=== PATIENT | female | born 1995 | race American Indian/Alaskan Native ===

== ENCOUNTER 2018-06-02 13:54 | Emergency (ER) | payer SELFPAY ==
[2018-06-02 14:48] LABS: Basophils % (Auto) 0.6 % (0.0-1.8); Eosinophils # (Auto) 0.3 K/mm3 (0.0-0.4); Eosinophils % (Auto) 4.4 % (0.0-4.3); Hematocrit 40.2 % (30.3-42.9); Hemoglobin 13.2 gm/dl (10.1-14.3); Lymphocytes # (Auto) 1.8 K/mm3 (1.2-5.4); Lymphocytes % (Auto) 28.7 % (13.4-35.0); Mean Corpuscular HGB Conc 33 % (30-34); Mean Corpuscular Hemoglobin 27 pg (28-32); Mean Corpuscular Volume 84 fl (79-97); Monocytes # (Auto) 0.4 K/mm3 (0.0-0.8); Monocytes % (Auto) 5.8 % (0.0-7.3); Platelet Count 305 K/mm3 (140-440); Red Cell Distribution Width 13.9 % (13.2-15.2)
[2018-06-02 15:02] LABS: HCG Qualitative,Urine Positive (Negative)
[2018-06-02 15:06] LABS: Bacteria,Urine 1+ /HPF (Negative); Bilirubin,Urine NEG (Negative); Blood,Urine MOD (Negative); Color,Urine Yellow (Yellow); Mucus,Urine FEW /HPF; Protein,Urine <15 mg/dL mg/dL (Negative); Urobilinogen,Urine < 2.0 mg/dL (<2.0)
--- NOTE | 2018-06-02 15:09 | Emergency Department Report ---
Blank Doc - Documentation Documentation: 22-year-old female in positive test at approximately 5 weeks gestation presents with abdominal cramping and vaginal bleeding. Patient reports symptom onset last night. Reports light vaginal bleeding. No previous history of pregnancies. She denies lightheadedness or dizziness. Patient slightly tachycardic at 106. Patient has mild suprapubic tenderness on exam. We will obtain tests, hCG level, blood type, and ultrasound to assess for ectopic versus threatened AB versus spontaneous AB.
--- NOTE | 2018-06-02 15:44 | Emergency Department Report ---
ED HPI - General Chief complaint: Vaginal Bleeding Stated complaint: BLEEDING/5 WEEKS GEST Time Seen by Provider: 06/02/18 14:19 Source: patient Mode of arrival: Ambulatory Limitations: No Limitations - History of Present Illness Initial comments: recent pos test bleeding lightly with cramping since last night Complaint: vaginal bleeding -: Gradual, Last night Location: pelvis Radiation: suprapubic Severity: mild Severity scale (0 -10): 2 Quality: cramping Consistency: intermittent Improves with: none Worsens with: none Associated symptoms: vaginal bleeding Vaginal bleeding: light :: Yes Number of weeks : 5 Pre- care: none - Related Data Previous Rx's Medication Instructions Recorded Last Taken Type Nitrofurantoin Monohyd/M-Cryst 100 mg PO BID #14 capsule 06/02/18 Unknown Rx [Macrobid 100 mg Capsule] Allergies Allergy/AdvReac Type Severity Reaction Status Date / Time No Known Allergies Allergy Unverified 06/02/18 14:03 ED Review of Systems ROS: Stated complaint: BLEEDING/5 WEEKS GEST Other details as noted in HPI Comment: All other systems reviewed and negative Gastrointestinal: abdominal pain Genitourinary: other (vaginal bleeding) ED Past Medical Hx - Past Medical History Previous Medical History?: Yes - Surgical History Past Surgical History?: No - Social History Smoking Status: Never Smoker Substance Use Type: None - Medications Home Medications: Home Medications Medication Instructions Recorded Confirmed Last Taken Type Nitrofurantoin Monohyd/M-Cryst 100 mg PO BID #14 capsule 06/02/18 Unknown Rx [Macrobid 100 mg Capsule] ED Physical Exam - General Limitations: No Limitations General appearance: alert, in no apparent distress - Head Head exam: Present: atraumatic, normocephalic - Eye Eye exam: Present: normal appearance - ENT ENT exam: Present: mucous membranes moist - Neck Neck exam: Present: normal inspection - Respiratory Respiratory exam: Present: normal lung sounds bilaterally. Absent: respiratory distress - Cardiovascular Cardiovascular Exam: Present: regular rate, normal rhythm. Absent: systolic murmur, diastolic murmur, rubs, gallop - GI/Abdominal GI/Abdominal exam: Present: soft, tenderness (suprapubic, mild), normal bowel sounds. Absent: distended, guarding, rebound - Extremities Exam Extremities exam: Present: normal inspection - Back Exam Back exam: Present: normal inspection - Neurological Exam Neurological exam: Present: alert, oriented X3 - Psychiatric Psychiatric exam: Present: normal affect, normal mood - Skin Skin exam: Present: warm, dry, intact, normal color. Absent: rash ED Course Vital Signs 06/02/18 06/02/18 13:59 15:25 Temperature 98.4 F Pulse Rate 106 H Respiratory 18 18 Rate Blood Pressure 143/78 O2 Sat by Pulse 99 99 Oximetry ED Medical Decision Making - Lab Data Result diagrams: 06/02/18 14:35 Rh+; UA shows UTI - Radiology Data Radiology results: report reviewed, image reviewed L ovarian cyst single viable IUP subchorionic hemorrhage - Medical Decision Making in with vaginal bleeding and cramping x 1 day benign exam UA shows UTI US shows L cyst, IUP, subchorionic hemorrhage pelvic rest, f/u OB - Differential Diagnosis ectopic, threatened ab, spontaneous ab, UTI Critical care attestation.: If time is entered above; I have spent that time in minutes in the direct care of this critically ill patient, excluding procedure time. ED Disposition Clinical Impression: Threatened , Left ovarian cyst UTI (urinary tract infection) Qualifiers: Urinary tract infection type: site unspecified Hematuria presence: with hematuria Qualified Code(s): N39.0 - Urinary tract infection, site not specified ; R31.9 - Hematuria, unspecified Disposition: - TO HOME OR SELFCARE Is pt being admited?: No Condition: Stable Instructions: Threatened Miscarriage (ED), Urinary Tract Infection in Women (ED ), Ovarian Cyst (ED) Prescriptions: Nitrofurantoin Monohyd/M-Cryst [Macrobid 100 mg Capsule] 100 mg PO BID #14 capsule Referrals: DENNIS RAMEY MD [Staff Physician] - 2-3 Days Time of Disposition: 16:51
--- NOTE | 2018-06-02 16:42 | Ultrasound Report ---
FINAL REPORT EXAM: US OB < = 14 WEEKS FETUS HISTORY: abd pain TECHNIQUE: Ultrasound evaluation of the gravid uterus PRIORS: Transvaginal pelvic ultrasound 06/02/2018 FINDINGS: A gestational sac is present in the endometrial cavity containing a yolk sac and pole. viability is documented with evidence of cardiac activity. pole crown-rump length: 2.6 mm Gestational Sac Size: 16.7 mm heart rate: 108 and 111 beats per minute Average estimated gestational age by ultrasound 6 weeks 2 days Estimated delivery date: 01/24/2019 Slightly hyperechoic material adjacent to the decidual reaction is nonspecific. Considerations include subchorionic hemorrhage or submucosal fibroid. No evidence of solid ovarian mass. Nonspecific 4.2 cm simple appearing left ovarian cyst may be a corpus luteum. There is slight fluid adjacent to the left ovary. The adnexa are normal. There is slight nonspecific cul-de-sac free fluid. IMPRESSION: Single viable early intrauterine with the above parameters Nonspecific hyperechoic material adjacent to the decidual reaction may reflect a 1.7 x 2.4 cm submucosal fibroid or subchorionic hemorrhage Left ovarian cyst may be a corpus luteum
--- NOTE | 2018-06-02 16:45 | Ultrasound Report ---
FINAL REPORT EXAM: US OB TRANSVAGINAL HISTORY: abd pain TECHNIQUE: Ultrasound evaluation of the gravid uterus using endovaginal technique PRIORS: Transabdominal Ob ultrasound 06/02/2018 FINDINGS: A gestational sac is present in the endometrial cavity containing a yolk sac and pole. viability is documented with evidence of cardiac activity. pole crown-rump length: 2.6 mm Gestational Sac Size: 16.7 mm heart rate: 108 and 111 beats per minute Average estimated gestational age by ultrasound 6 weeks 2 days Estimated delivery date: 01/24/2019 Slightly hyperechoic material adjacent to the decidual reaction is nonspecific. Considerations include subchorionic hemorrhage or submucosal fibroid. No evidence of solid ovarian mass. Nonspecific 4.2 cm simple appearing left ovarian cyst may be a corpus luteum. There is slight fluid adjacent to the left ovary. The adnexa are normal. There is slight nonspecific cul-de-sac free fluid. IMPRESSION: Single viable early intrauterine with the above parameters Nonspecific hyperechoic material adjacent to the decidual reaction may reflect a 1.7 x 2.4 cm submucosal fibroid or subchorionic hemorrhage Left ovarian cyst may be a corpus luteum
[2018-06-02 17:20] VITALS: BP 138/88
== END 2018-06-02 17:17 | disposition home or self-care (01) ==
LOC: ED 13:54
DX: O20.0 Threatened abortion (principal); O23.41 Unspecified infection of urinary tract in pregnancy, first trimester; O34.81 Maternal care for other abnormalities of pelvic organs, first trimester; Z3A.01 Less than 8 weeks gestation of pregnancy
CPT/HCPCS: 36415; 76801; 76817; 81001; 81025; 84702; 85025; 86850; 86900; 86901; 87086; 99284